=== PATIENT | female | born 1960 | race Caucasian/White ===

== ENCOUNTER 2020-10-18 08:50 | Outpatient (REF) | payer OTHER, SELFPAY ==
[2020-10-18 09:13] LABS: COVID-19 Test Negative (Negative)
== END 2020-10-18 08:51 | disposition home or self-care (01) ==
LOC: HO.EMPCOV 08:50
PROVIDERS: Visit Provider Internal Medicine
DX: Z20.828 Contact with and (suspected) exposure to other viral communicable diseases (principal)
CPT/HCPCS: 87635; C9803

== ENCOUNTER 2020-11-05 08:55 | Outpatient (REF) | payer OTHER, SELFPAY ==
[2020-11-05 09:17] LABS: COVID-19 Test Negative (Negative)
== END 2020-11-05 08:56 | disposition home or self-care (01) ==
LOC: HO.EMPCOV 08:55
PROVIDERS: Visit Provider Internal Medicine
DX: Z20.822 Contact with and (suspected) exposure to COVID-19 (principal)
CPT/HCPCS: 36415; 87635; C9803

== ENCOUNTER 2020-11-08 09:06 | Outpatient (REF) | payer OTHER, SELFPAY ==
[2020-11-08 09:17] LABS: COVID-19 Test Positive (Negative)
== END 2020-11-08 09:07 | disposition home or self-care (01) ==
LOC: HO.EMPCOV 09:06
PROVIDERS: Visit Provider Internal Medicine
DX: Z20.822 Contact with and (suspected) exposure to COVID-19 (principal)
CPT/HCPCS: 36415; 87635; C9803

== ENCOUNTER 2021-08-29 10:56 | Outpatient (REF) | payer OTHER, SELFPAY ==
[2021-08-29 14:02] LABS: Appearance Urine CLEAR; Color Urine YELLOW; Glucose Urine UA NEG (NEG); Leukocyte Esterase Urine 2+ (NEG); Nitrite Urine NEG (NEG); PH 6.5 (5.0-8.0); UACC Culture Trigger YES; Urine Blood NEG (NEG); Urine Ketones NEG (NEG); Urine Protein NEG (NEG-TRACE)
[2021-08-29 14:30] LABS: RBC Urine 0 /HPF (0); Renal Epithelial Cells Urine 2+ /LPF; Squamous Epithelial Cell Urine 1+ /LPF; UACC CULT YES
== END 2021-08-29 10:57 | disposition home or self-care (01) ==
LOC: HO.10HDL 10:56
PROVIDERS: Visit Provider Internal Medicine
DX: R82.90 Unspecified abnormal findings in urine (principal); R35.0 Frequency of micturition
CPT/HCPCS: 81001; 87086

== ENCOUNTER → 2022-12-05 09:56 | Outpatient (BNVA) | payer OTHER, SELFPAY | PROVIDERS: PCP Internal Medicine; Visit Provider Orthopaedic Surgery | DX: M65.4 Radial styloid tenosynovitis [de Quervain] (principal) | CPT/HCPCS: 20550; J1100 ==

== ENCOUNTER 2024-01-18 07:16 | Outpatient (REF) | payer OTHER, SELFPAY ==
--- NOTE | ~2024-01-18 | FL_ITS ---
EXAMINATION: XR FLUOROSCOPY UPPER GI WITH AIR CLINICAL INFORMATION: Abdominal pain, midsternal burning COMPARISON: None TECHNIQUE: Fluoroscopic air contrast upper GI examination was performed utilizing standard techniques with thin and thick barium and effervescent granules. Numerous spot images were obtained. FINDINGS: Dual and single contrast images of the esophagus demonstrate a normal caliber and contour. The upper esophageal mucosa has a mild irregular appearance and thickening likely represents esophagitis. No evidence of stricture, mass, or ulcerations identified. Esophageal peristalsis is mildly disorganized. No evidence of hiatus hernia identified. No significant gastroesophageal reflux was seen during the course of the examination and on reflux views. Dual contrast and single contrast images of the stomach demonstrated a normal contour. The gastric mucosal folds are thickened. There are multiple small areas of contrast pooling throughout the stomach that may represents tiny superficial aphthous ulcers. No masses are seen. Contrast freely passed into the gastric antrum and duodenal bulb without delay. Single and air-contrast images of the duodenal bulb demonstrate no abnormality. Contrast never progressed into the duodenal sweep or proximal small bowel on this examination. FLUOROSCOPY TIME: 5 minutes 12 seconds Number of Spot Images: 10 Number of Cine: 18 DOSE AREA PRODUCT: 2072 uGy-m2 (microgray-meter squared) FL/FL barium swallow IMPRESSION: 1. Mild irregular appearance of the upper esophageal mucosa that likely represents esophagitis. 2. Mildly disorganized esophageal peristalsis 3. Thickened appearance of the gastric mucosal folds. In addition there are multiple small areas of contrast pooling throughout the stomach. These findings are suggestive of erosive gastritis. Recommend correlation with EGD. 4. Contrast never did progress into the duodenal sweep or proximal small bowel, of uncertain significance. No definite outlet obstruction. This procedure was performed by Micky Abebe PA-C, and supervised by Dr. Estrada
== END 2024-01-18 07:17 | disposition home or self-care (01) ==
LOC: HO.XRAY 07:16
PROVIDERS: PCP Internal Medicine; Visit Provider Otolaryngology
DX: R13.10 Dysphagia, unspecified (principal)
CPT/HCPCS: 74220

== ENCOUNTER → 2024-01-18 07:18 | Outpatient (BNV) | payer OTHER, SELFPAY | PROVIDERS: PCP Internal Medicine; Visit Provider Physician Assistant Surgical | DX: R10.9 Unspecified abdominal pain (principal) | CPT/HCPCS: 74221 ==

== ENCOUNTER 2024-02-15 08:03 | Day surgery (SDC) | payer OTHER, SELFPAY ==
[2024-02-15 08:12] VITALS: BMI 19.7
[2024-02-15] MEDS: Lactated Ringers 1,000 ML 80 ML IVCONT (08:17)
[2024-02-15 08:24] VITALS: BP 132/66; PULSE 79; RESP 18; TEMP 36.6; O2SAT 100
--- NOTE | 2024-02-15 09:11 | HO.ANESPROP2 ---
HPI - Anesthesia Eval Consult details Narrative: for [facility]per [facility] Active Problems Active Problems: All Active Problems De Quervain's tenosynovitis, left (Acute) Eyelid cellulitis (Acute) Past Medical History Medical History GERD (gastroesophageal reflux disease) Family History Family history of problems with anesthesia: No Surgical History Surgical History Hx of breast biopsy Hx of tonsillectomy Hx of esophagogastroduodenoscopy History of Problems with Anesthesia: No Social History Social History Patient Tobacco Use Status: Never used Tobacco Are you DNR?: No Advance Directives: No Advance Directives Information Provided: Yes Nutrition Risks: No Nutritional Risk Current occupation: front desk receptionist/ rt hand Meds Allergies Allergy/AdvReac Type Severity Reaction Status Date / Time ibuprofen [From MOTRIN] Allergy Unknown ANAPHYLAXIS Verified 02/15/24 08:26 aspirin Allergy Anaphylaxis Verified 02/15/24 08:26 sulfamethoxazole Allergy Facial Verified 02/15/24 08:26 [From Bactrim] Swelling trimethoprim [From Bactrim] Allergy Facial Verified 02/15/24 08:26 Swelling Active Medications: Current Medications Lactated Ringer's (Lr) 1,000 mls @ 80 mls/hr IVCONT .[id number] CHAYITO Last Admin: 02/15/24 08:17 Dose: 80 mls/hr Home Medications ?Medication ?Instructions ?Recorded ?Confirmed ?Last Taken ?Type Tagamet 02/15/24 02/15/24 Unknown History multivitamin 02/15/24 02/15/24 Unknown History Exam Height,Weight and Vital Signs: Height 5 ft 6 in Weight 55.338 kg Last Vital Signs Temp 97.9 F 02/15/24 08:24 Pulse 79 02/15/24 08:24 Resp 18 02/15/24 08:24 BP 132/66 02/15/24 08:24 Pulse Ox 100 02/15/24 08:24 O2 Del Method Room Air 02/15/24 08:24 Airway Mallampati Class: III (receeding chin) TM Dist: <=3cm Neck ROM: Full Heart: rrr Lungs: cta Assessment and Plan Assessment Anesthesia Assessment: Anesthesia Plan Discussed Final Anesthetic Review Family History of Problems with Anesthesia: No History of Problems with Anesthesia: No NPO: Yes ASA Class: II Final Preanesthetic Review: No Changes in Pt Med Stat, Meds/Allgs Chart Reviewed, Consent Obtained/Reviewed and Anes Risks/Benef Reviewed Patient Risk: Low Procedure Risk: Low Anesthetic Plan Anesthetic Plan: MAC: Disposition: Standard PACU
[2024-02-15 09:36] VITALS: BP 103/44; PULSE 76; RESP 16; TEMP 36.1; O2SAT 97
--- NOTE | 2024-02-15 09:41 | PM.OP ---
Brief Operative Note Date of Service: 02/15/24 Pre-op diagnosis: Abdominal pain Post-op diagnosis: other (Minimal gastritis) Procedure: EGD with biopsies Surgeon: Bertin tSrange MD Anesthesia: MAC Was an Supervisor Cell Operation used for this Procedure?: No Estimated blood loss (mL): 2.0 Pathology: other (A. Descending duodenum B. Gastric antrum C. Gastric polyps) Condition: stable Disposition: PACU
[2024-02-15 09:51] VITALS: BP 122/66; PULSE 77; RESP 16; TEMP 36.2; O2SAT 98
--- NOTE | 2024-02-15 09:54 | OP_ITS ---
DATE OF SERVICE: 02/15/2024 SURGEON: Bertin Strange MD INDICATIONS: The patient presents for evaluation of abdominal pain, gastroesophageal reflux, and abnormal upper GI series. Full consent was obtained from her for this, including risks of bleeding and perforation. PREOPERATIVE DIAGNOSIS: POSTOPERATIVE DIAGNOSIS: PROCEDURE PERFORMED: Esophagogastroduodenoscopy with biopsies. ESTIMATED BLOOD LOSS: COMPLICATIONS: ANESTHESIA: Monitored anesthesia care. ASSISTANTS: SPECIMENS: PREOPERATIVE DIAGNOSES: Abdominal pain, gastroesophageal reflux, and abnormal upper GI series. POSTOPERATIVE DIAGNOSES: Abdominal pain, gastroesophageal reflux, and abnormal upper GI series, rule out celiac disease, minimal gastritis, small gastric polyps, minimal hiatal hernia. DESCRIPTION OF PROCEDURE: The patient was placed in the left lateral decubitus position. The Olympus video gastroscope was passed in the posterior oropharynx and upper esophagus under direct vision. The scope was passed slowly to the distal esophagus. The gastroesophageal junction was visualized at 39 cm. This appeared normal without any sign of esophagitis nor Suazo esophagus. There was a minimal hiatal hernia. The scope was advanced to the pylorus and the duodenum was cannulated to the descending portion. The duodenum including the bulb appeared normal without mass or ulceration. Biopsies were obtained from the 2nd and 3rd portions of duodenum. The scope was withdrawn back in the stomach. The gastric antrum had some mild areas of erythema, but no erosions or ulceration. There was good peristalsis. Biopsies were obtained from the gastric antrum. The scope was retroflexed, visualizing the proximal stomach carefully, which appeared normal, without any sign of mass or ulceration, other than several hyperplastic polyps. Two of these were biopsied. The scope was straightened and withdrawn back to the esophagus. The esophageal mucosa appeared completely normal. The scope was withdrawn from the patient. She tolerated the procedure well and was returned to the recovery area in stable condition. IMPRESSION: 1. Rule out celiac disease. 2. Small gastric polyps. 3. Minimal gastritis. 4. Minimal hiatal hernia. PLAN: The results of the biopsies will be checked. She has been advised to stay on a normal diet unless the duodenal biopsies show celiac disease, or if she feels that she definitely feels better on a gluten-free diet. She was advised that she could finish her month supply of Tagamet and then she could try to stop that to see how she does without it. If she does find that she needs to be on it chronically to keep any upper GI symptoms at bay, she could then continue the Tagamet as needed. If H. pylori is present in the gastric biopsies we could consider treating that if she remains significantly symptomatic from an upper GI standpoint. She was advised not to use any aspirin or NSAIDs for at least 1 week. At this point, I do not think she needs to be on a PPI. This has been discussed with her . MD ILDA Best/KEI / [id number] MTDD
== END 2024-02-15 10:15 | disposition home or self-care (01) ==
PROVIDERS: PCP Internal Medicine; Visit Provider Internal Medicine
PROC: 0DJ08ZZ Inspection of Upper Intestinal Tract, Via Natural or Artificial Opening Endoscopic (ICD-10-PCS; CPT 43235; principal; 2024-02-15 09:00)
DX: R10.13 Epigastric pain (principal); K21.9 Gastro-esophageal reflux disease without esophagitis; K29.50 Unspecified chronic gastritis without bleeding; K31.7 Polyp of stomach and duodenum; K44.9 Diaphragmatic hernia without obstruction or gangrene; Z79.899 Other long term (current) drug therapy; Z88.6 Allergy status to analgesic agent; Z88.8 Allergy status to other drugs, medicaments and biological substances
CPT/HCPCS: 43239; 88305; 88313; 88342; J1596; J2704

== ENCOUNTER 2024-06-27 07:47 | Outpatient (REF) | payer OTHER, SELFPAY ==
--- NOTE | ~2024-06-27 | XR_ITS ---
EXAMINATION: XR SHOULDER, LEFT CLINICAL INFORMATION: Left shoulder pain COMPARISON: None available. TECHNIQUE: Three views of the left shoulder. FINDINGS: The bones and soft tissues are normal. No fracture. Glenohumeral and acromioclavicular alignment is anatomic with normal joint space. No abnormal soft tissue calcifications. XR/XR shoulder LT min 2V IMPRESSION: Normal left shoulder. Electronically signed by: Fili Maxwell MD 07/03/2024 09:02 AM EDT
== END 2024-06-27 07:48 | disposition home or self-care (01) ==
LOC: HO.HOSX 07:47
PROVIDERS: PCP Internal Medicine; Visit Provider Physician Assistant
DX: M25.512 Pain in left shoulder (principal)
CPT/HCPCS: 20610; 73030; J1010

== ENCOUNTER 2024-06-27 08:07 | Outpatient (AMB) | payer OTHER, SELFPAY ==
[2024-06-27 08:26] VITALS: BMI 19.7
--- NOTE | 2024-06-27 08:26 | A.OFFVIS_ITS ---
Vital Signs 06/27/24 08:26 Height 5 ft 6 in Weight 122 lb BMI 19.7 Intake Visit Reasons: New Prob - left shoulder pain Intake Note: Sharonda is a 64 year old right hand dominant female who presents today for a new problem visit with complaints of left shoulder pain. Allergies ibuprofen [From MOTRIN] Allergy (Unknown, Verified 02/15/24 08:26) ANAPHYLAXIS aspirin Allergy (Verified 02/15/24 08:26) Anaphylaxis sulfamethoxazole [From Bactrim] Allergy (Verified 02/15/24 08:26) Facial Swelling trimethoprim [From Bactrim] Allergy (Verified 02/15/24 08:26) Facial Swelling PFSH Medical History GERD (gastroesophageal reflux disease) Surgical History Hx of breast biopsy Hx of tonsillectomy Hx of esophagogastroduodenoscopy Social History Patient Tobacco Use Status: Never used Tobacco Current occupation: unit receptionist/ rt hand Assessment & Plan Assessment & Plan Orders: Orders XR shoulder LT min 2V Today M25.512 - Pain in left shoulder Coding
--- NOTE | 2024-06-27 08:26 | MHC.OFFVIS ---
Vital Signs 06/27/24 08:26 Height 5 ft 6 in Weight 122 lb BMI 19.7 Intake Visit Reasons: New Prob - left shoulder pain Intake Note: Sharonda is a 64 year old right hand dominant female who presents today for a new problem visit with complaints of left shoulder pain. Patient reports ongoing pain for 3 months and it is getting worse. She mentions when she is extending her arm outward and getting dressed. Patient has tried taking Tylenol with no relief. Allergies ibuprofen [From MOTRIN] Allergy (Unknown, Verified 06/27/24 08:29) ANAPHYLAXIS aspirin Allergy (Verified 06/27/24 08:29) Anaphylaxis sulfamethoxazole [From Bactrim] Allergy (Verified 06/27/24 08:29) Facial Swelling trimethoprim [From Bactrim] Allergy (Verified 06/27/24 08:29) Facial Swelling Medication List - Last Reconciled 06/27/24 by Chrystal Prabhakar PA-C [multivitamin ] [Tagamet ] HPI HPI New Prob - left shoulder pain: Details: 64-year-old right hand dominant female who presents to the office today for an evaluation of left shoulder pain for 3 months. She reports she was getting dressed when she extending her arm outward and experienced pain. She currently states she has worsening pain in her shoulder that is aggravated with extending her arm outward, getting dressed overhead reaching, lifting and at night. She has tried Tylenol for her pain without benefits. She does not have a history of diabetes [facility] Medical History GERD (gastroesophageal reflux disease) Surgical History Hx of breast biopsy Hx of tonsillectomy Hx of esophagogastroduodenoscopy Social History Patient Tobacco Use Status: Never used Tobacco Current occupation: part time receptionist/ rt hand Review of Systems Const All systems reviewed & are unremarkable except as noted in HPI and below Physical Exam Vital Signs: BMI result Body Mass Index 19.7 Extrem Other: Left shoulder: Normal to inspection. Tenderness over the bicipital groove and along the deltoid region of the shoulder. Forward flexion to 175, external rotation to 90, internal rotation to S1. 5/5 RTC strength. Positive Gonzalez and cross body abduction. NVI. Positive Office Procedures Joint Injection/Aspiration Joint Injection/Aspiration Primary Site: left shoulder Prep: site was prepped using aseptic technique, ethochloride spray was applied and injection warnings given Injected: 80 mg of, DepoMedrol, with 8 mL of, 1% plain lidocaine and in the subcromial space Approach Used: posterolateral Procedure: The patient tolerated the procedure well and there was some relief with the local anesthesia Coding 25205 - Glenohumeral/Tronchanteric Bursa/Intraarticular Procedure code (CPT) selection complete Results Reviewed Results Reviewed: xrays of the left shoulder obtained today show narrowing of the ac joint Assessment & Plan Assessment & Plan (1) Tendinitis of right rotator cuff: Code(s): M75.81 - Other shoulder lesions, right shoulder Category: Medical Plan We discussed options today, which include steroid injection. The patient did consent to move forward with the left shoulder injection, which was tolerated well. I recommended rest, ice, and elevation and OTC anti-inflammatories as needed for discomfort. If symptoms persist or worsen over the next 6-8 weeks, patient will contact the office, otherwise follow-up as needed. She was given a course of physical therapy to work on RTC strengthening, scapular stabilization Orders: Orders XR shoulder LT min 2V Today M25.512 - Pain in left shoulder PT Evaluation and Treatment Today M75.81 - Other shoulder lesions, right shoulder Patient Instructions: Scribed for Chrystal Prabhakar PA-C, by Sebastián Ramirez medical technologist microbiology, on 06/27/2024 at 8:15 AM EST.? I, Chrystal Prabhakar PA-C, have personally reviewed and agree with the information entered by the scribe. Coding Level of Care Code New Pt Level 3 (19061) Complex EM visit Add On G2211 Diagnoses Tendinitis of right rotator cuff M75.81 CPT Codes Coding - Joint 7: 44210 - Glenohumeral/Tronchanteric Bursa/Intraarticular ([id number])
== END 2024-06-27 08:59 | disposition home or self-care (01) ==
PROVIDERS: PCP Internal Medicine; Visit Provider Physician Assistant
DX: M75.82 Other shoulder lesions, left shoulder (principal)
CPT/HCPCS: 20610; 99203

== ENCOUNTER 2024-09-03 11:00 | Outpatient (RCR) | payer OTHER, SELFPAY ==
--- NOTE | 2024-08-06 11:19 | MHC.PT.EP ---
[facility] [place] Office [place] Office [place] Office [address] Tami Al [address] [phone] F: [phone] F: [phone] F: [phone] F: [phone] Physical Therapy Plan of Care Date of Evaluation: 08/06/24 Date of Surgery: Diagnosis: This is a 64 yo female presenting to skilled PT with a script for L shoulder pain. Assessment: This is a 64 yo female presenting to skilled PT with a script for L shoulder pain. Patient reports ongoing pain for 5 months now and is getting worse. She feels like it stemmed from reaching OH to undress a shirt while trying clothing on (crossed arms and pulled OH with both arms). She is being followed by [facility] ortho. Note states: We discussed options today, which include steroid injection. The patient did consent to move forward with the left shoulder injection, which was tolerated well. I recommended rest, ice, and elevation and OTC anti-inflammatories as needed for discomfort. If symptoms persist or worsen over the next 6-8 weeks, patient will contact the office, otherwise follow-up as needed. She was given a course of physical therapy to work on RTC strengthening, scapular stabilization. She is here today reporting pain has improved some since the cortisone injection. Pain increases when she reaches up and out, reaching behind her, pulling/pushing and with functional activities including getting dressed, sleeping and driving. Pain is located ACJ and radiates down the arm into the lower arm. Achy and sharp in nature. She does get UT pain as well and feels like her neck is effected from this. Patient has tried taking Tylenol with no relief and some self assisted stretching (cross body posterior capsule stretch). Assessment reveals pain that ranges from up to a 6/10 at the worst. Patient demos decreased L shoulder and cervical ROM, strength of L shoulder and scapular stabilizer muscles, TTP at GHJ joint line, UT and subscapularis and impaired posture with forward head and rounded shoulders. Based on functional limitations, impaired QOL and pain tolerance patient is a good candidate for skilled PT 2x/wk for 4wks (due to high co-pay will be coming 1x/wk). Frequency and Duration: The patient will be seen 2x/wk for 4wks Short Term Goals: (In 2 weeks) Demo I with HEP Improve shoulder AROM by at least 50% Demo proper scapular recruitment with appropriate shoulder strengthening exercises Fci Goals: (in 4 wks) Improve shoulder nonpainful AROM to almost near equal B Demo at least 5/5 improvement in MMT for shoulder Improve SPADI by at least 10 points Improve overall functional QOL by at least 75% including dressing, washing, ADLs Patient will be able to tolerate sleeping through the night without waking from pain Treatment Plan: Modalities to reduce pain, spasms and effusion. Manual therapy to restore motion and function. Therapeutic exercise to improve strength and flexibility. Neuromuscular re-education for posture and balance. Therapeutic activities to return to functional activities of daily living. Electronically signed by: Amelia Sanabria PT Please sign and return to therapist. Thank you for your referral.
--- NOTE | 2024-10-01 09:46 | MHC.PT.DC ---
[facility] [place] Office [place] Office [place] Office [address] Tami Al [address] [phone] F: [phone] F: [phone] F: [phone] F: [phone] Physical Therapy Discharge Report Diagnosis: This is a 64 yo female presenting to skilled PT with a script for L shoulder pain. Date of Surgery: Date of Evaluation: 08/06/24 Date of Discharge: 10/01/24 Treatments to Date: 5 Cancellations to Date: 0 No Shows to Date: 0 Discharge Status: Achieved Goals Improved Function Independent with HEP Patient Elected to Stop Discharge Summary: 09/03: Patient has improved her ROM, strength and pain. She has a good HEP to continue on her own. She was educated on HEP, pain management with tens, self TrP for home use. She has met her goals and is ready for DC. She does endorse some stiffness and pain still with IR and ER rotation but feels like she can continue to manage this on her own. I did educate her that if her pain does not resolve in the next few months, to contact ortho for a follow-up. Electronically signed by: Amelia Sanabria PT Please sign and return to therapist. Thank you for your referral.
== END 2024-10-01 09:47 | disposition home or self-care (01) ==
LOC: HO.PTCHIC 11:00
PROVIDERS: PCP Internal Medicine; Visit Provider Physician Assistant
DX: M75.102 Unspecified rotator cuff tear or rupture of left shoulder, not specified as traumatic (principal)
CPT/HCPCS: 97014; 97110; 97140; 97161